=== PATIENT | female | born 1990 ===

== ENCOUNTER 2018-10-23 00:51 | Emergency (ER) | payer SELFPAY ==
[2018-10-23 00:51] VITALS: BMI 34.4
[2018-10-23 01:16] VITALS: BP 102/64; PULSE 65; RESP 18; TEMP 98.3; O2SAT 100
--- NOTE | 2018-10-23 01:22 | C.PDOC ---
History Of Present Illness 28 year old female presents to ED with complaint of feeling anxious. She states that she is getting on 10/25. She notes that she felt some palpitations. She states that she feels better now. Patient took no medication for her symptoms. She denies fever, chills, nausea, and vomiting. Time Seen by Provider: 10/23/18 01:22 Chief Complaint (Nursing): Anxiety History Per: Patient History/Exam Limitations: no limitations Onset/Duration Of Symptoms: Hrs (4) Current Symptoms Are (Timing): Better Suicide/Self Injury Attempted (Context): None Modifying Factor(s): None Severity: None Pain Scale Rating Of: 0 Associated Symptoms: Anxiety. denies: Suicidal Thoughts, Suicidal Plan Involuntary Hold By: None Recent travel outside of the [place]: No Additional History Per: Patient Past Medical History Reviewed: Historical Data, Nursing Documentation, Vital Signs Vital Signs: Last Vital Signs Temp 98.3 F 10/23/18 01:07 Pulse 65 10/23/18 01:07 Resp 18 10/23/18 01:07 BP 102/64 10/23/18 01:07 Pulse Ox 100 10/23/18 01:07 Primary Care Provider: FAMILY PROVIDER,NO - Medical History PMH: Anxiety, HTN, Kidney Stones, Sleep Apnea (UNSURE /APNEA TEST IN FEBRUARY) Surgical History: Endoscopy (4 -5 YRS AGO FEB 2014) - [facility] Procedures ESOPHAGOGASTRODUODENOSCOPY [EGD] W/CLOSED BIOPSY (02/18/14) HIGHLY SELECT VAGOTOMY (05/03/14) LAPAROSCOPIC GASTROENTEROSTOMY (05/03/14) OTHER GASTROSCOPY (05/03/14) Family History: States: Unknown Family Hx Denies: GA - Social History Hx Tobacco Use: No Hx Alcohol Use: No Hx Substance Use: No - Immunization History Hx Tetanus Toxoid Vaccination: No Hx Influenza Vaccination: No Hx Pneumococcal Vaccination: No Review Of Systems Constitutional: Negative for: Fever, Chills, Weakness Cardiovascular: Positive for: Palpitations Respiratory: Negative for: Cough, Shortness of Breath Gastrointestinal: Negative for: Nausea, Vomiting Neurological: Negative for: Weakness, Numbness Psych: Positive for: Anxiety Physical Exam - Physical Exam Appears: Non-toxic, No Acute Distress Skin: Warm, Dry Head: Normacephalic Eye(s): bilateral: Normal Inspection Oral Mucosa: Moist Neck: Normal ROM, Supple Chest: Symmetrical Cardiovascular: Rhythm Regular Extremity: Bilateral: Normal Color And Temperature Neurological/Psych: Oriented x3 ED Course And Treatment ECG: Interpreted By Me, Viewed By Me ECG Rhythm: Sinus Rhythm (68), Nonspecific Changes O2 Sat by Pulse Oximetry: 100 (in RA) Pulse Ox Interpretation: Normal Reevaluation Time: 02:00 Reassessment Condition: Improved Medical Decision Making Medical Decision Making: Upon provider reevaluation patient is feeling better, is medically stable, and requires no further treatment in the ED at this time. Patient will be discharged home . Counseling was provided and all questions were answered regarding diagnosis and need for follow up with the referred clinic. There is agreement to discharge plan. Return if symptoms persist or worsen. Disposition Counseled Patient/Family Regarding: Studies Performed, Diagnosis, Need For Foll owup - Disposition Referrals: [facility] [Outside] Disposition: HOME/ ROUTINE Disposition Time: 01:22 Condition: FAIR Additional Instructions: Please return if symptoms recur Instructions: Anxiety, Adult (DC) Forms: [employer] (Armenian) - Clinical Impression Clinical Impression: Anxiety - Scribe Statement The provider has reviewed the documentation as recorded by the Scribe (Elsie Otoole) All medical record entries made by the Scribe were at my direction and personally dictated by me. I have reviewed the chart and agree that the record accurately reflects my personal performance of the history, physical exam, medical decision making, and the department course for this patient. I have also personally directed, reviewed, and agree with the discharge instructions and disposition.
--- NOTE | 2018-10-24 12:10 | CARD ---
APPROVED REPORT Date of service: 10/23/2018 EKG Measurement Heart [id number] <Conclusion> Normal sinus rhythm Normal ECG
== END 2018-10-23 02:04 | disposition home or self-care (01) ==
LOC: SUPCPDRO 00:51 → C.ER 00:51
DX: F41.9 Anxiety disorder, unspecified (principal); I10 Essential (primary) hypertension